=== PATIENT | female | born 1960 | race Caucasian/White ===

== ENCOUNTER 2018-09-23 10:07 | Day surgery (SDC) | payer OTHER ==
[2018-09-23] MEDS: NS 1,000 ML IV (06:00)
[2018-09-23] MEDS ORDERED: PROPOFOL 200 MG/20 ML VIAL As Ordered ×2 (12:02)
== END 2018-09-23 13:31 | disposition home or self-care (01) ==
LOC: M OPP 10:07
DX: Z12.11 Encounter for screening for malignant neoplasm of colon (principal); K64.0 First degree hemorrhoids
CPT/HCPCS: 45378

== ENCOUNTER → 2022-09-11 | Outpatient (REF) | payer OTHER ==
[2022-09-12 11:13] LABS: ANTINUCLEAR ANTIBODIES DIRECT Negative (Negative)
== END ==
LOC: M LAB REF 11:36
PROVIDERS: ATTEND Nurse Practitioner Adult Health
DX: D72.819 Decreased white blood cell count, unspecified (principal)

== ENCOUNTER → 2023-01-28 | Outpatient (REF) | payer OTHER | LOC: M PLALAB 17:09 | PROVIDERS: ATTEND Nurse Practitioner Family | DX: Z12.4 Encounter for screening for malignant neoplasm of cervix (principal) | CPT/HCPCS: 87624; G0123 ==

== ENCOUNTER → 2024-01-30 | Outpatient (REF) | payer OTHER | LOC: M SFHCWAGY 10:01 | PROVIDERS: ATTEND Nurse Practitioner Family | DX: Z12.4 Encounter for screening for malignant neoplasm of cervix (principal); R87.610 Atypical squamous cells of undetermined significance on cytologic smear of cervix (ASC-US); N95.2 Postmenopausal atrophic vaginitis | CPT/HCPCS: 87624; G0123 ==

== ENCOUNTER → 2024-03-05 | Outpatient (REF) | payer OTHER | LOC: M SFHCWAGY 10:40 | PROVIDERS: ATTEND Obstetrics & Gynecology | DX: R87.612 Low grade squamous intraepithelial lesion on cytologic smear of cervix (LGSIL) (principal) ==

== ENCOUNTER 2024-07-10 15:38 | Day surgery (SDC) | payer OTHER ==
[~2024-07-10] VITALS: Ht 162.6 cm; Wt 49.4 kg
[~2024-07-10 15:38] MED LIST: ALEN70TA82 PO; MIDAZOLAM INJ 2MG/2ML VIAL As Ordered ONE; fentaNYL 100 MCG/2 ML INJECTION As Ordered ONE
[2024-07-10] MEDS ORDERED: propofoL 200 MG/20 ML VIAL As Ordered ONE (15:58)
[2024-07-10 16:32] LABS: HEMATOCRIT 40.9 % (36.0-47.0); HEMOGLOBIN 13.2 g/dl (12.0-15.5); MEAN CORPUSCULAR HGB CONC 32.3 g/dl (32.0-36.5); MEAN CORPUSCULAR VOLUME 89.9 fl (80.0-96.0); PLATELET COUNT, AUTOMATED 277 10^3/uL (150-450); RED BLOOD COUNT 4.55 10^6/uL (4.00-5.40); WHITE BLOOD COUNT 5.4 10^3/uL (4.0-10.0)
[2024-07-10] MEDS ORDERED: KETOROLAC 60MG 2ML VIAL As Ordered ONE (16:40)
[2024-07-10] MEDS: LIDOCAINE W/EPINEPHRINE 1% 20ML VIAL As Ordered ONE (16:41)
[2024-07-10] MEDS: IODINE STRONG SOLN 15ML BTL As Ordered ONE (16:50)
[2024-07-10 16:52] LABS: ALBUMIN 4.2 G/DL (3.2-5.2); ALKALINE PHOSPHATASE 89 U/L (46-116); ALT/SGPT 22 U/L (7.0-40); AST/SGOT 19 U/L (<34); BILIRUBIN,TOTAL 0.9 MG/DL (0.3-1.2); BLOOD UREA NITROGEN 18 MG/DL (9-23); CALCIUM LEVEL 9.3 MG/DL (8.3-10.6); CARBON DIOXIDE LEVEL 29 MMOL/L (20-31); CHLORIDE LEVEL 107 MMOL/L (98-107); CREATININE FOR GFR 0.67 MG/DL (0.55-1.30); GLOMERULAR FILTRATION RATE > 60.0 (>45); GLUCOSE, FASTING 85 MG/DL (74-106); POTASSIUM SERUM 3.6 MMOL/L (3.5-5.1); SODIUM LEVEL 141 MMOL/L (136-145)
[2024-07-10 17:40] VITALS: BP 113/64; TEMP 97.4; O2SAT 100
== END 2024-07-10 17:57 | disposition home or self-care (01) ==
LOC: M SDC 15:38
PROVIDERS: ATTEND Obstetrics & Gynecology
DX: N87.1 Moderate cervical dysplasia (principal); M81.0 Age-related osteoporosis without current pathological fracture; Z79.899 Other long term (current) drug therapy; Z87.891 Personal history of nicotine dependence; Z80.3 Family history of malignant neoplasm of breast; Z80.6 Family history of leukemia
CPT/HCPCS: 36415; 57522; 80053; 85027; 86850; 86900; 86901; 88307; J1885; J2250; J3010

== ENCOUNTER → 2025-01-26 | Outpatient (REF) | payer OTHER ==
[~2025-01-26] MED LIST changes: -MIDAZOLAM INJ 2MG/2ML VIAL As Ordered ONE; -fentaNYL 100 MCG/2 ML INJECTION As Ordered ONE
[2025-01-26 18:30] LABS: Trichomonas vaginalis (AMP) NOT DETECTED (NEGATIVE)
[2025-01-26 18:54] LABS: GC DNA AMPLIFICATION NEGATIVE (NEGATIVE)
[2025-02-03 14:17] LABS: HPV APTIMA Not Detected (Not Detected)
== END ==
LOC: M PLALAB 15:02
PROVIDERS: ATTEND Obstetrics & Gynecology
DX: Z12.4 Encounter for screening for malignant neoplasm of cervix (principal); R87.619 Unspecified abnormal cytological findings in specimens from cervix uteri
CPT/HCPCS: 87624; 87661; 87810; 87850; G0123